=== PATIENT | female | born 1985 | race Two or more races ===

== ENCOUNTER 2019-01-04 08:39 | Emergency (ER) | payer MEDICAID ==
[~2019-01-04] VITALS: Ht 154.9 cm; Wt 62.2 kg
[2019-01-04 08:42] VITALS: BP 125/65
--- NOTE | 2019-01-04 08:51 | NUR ---
Patient ambulated to bed 4. RN evaluating patient at bedside.
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
--- NOTE | 2019-01-04 09:10 | NUR ---
Dr. Huynh evaluating patient at bedside.
--- NOTE | 2019-01-04 09:25 | NUR ---
PT BEING TAKEN TO XRAY
--- NOTE | 2019-01-04 09:38 | NUR ---
Patient returned from XRAY. RN re-evaluating patient at bedside.
[2019-01-04] MEDS ORDERED: HYDROcodone/APAP 5/325 MG 1 TAB TAB PO ONE (10:15)
[2019-01-04 10:39] VITALS: BP 129/70
--- NOTE | 2019-01-04 10:39 | NUR ---
Patient discharged with v/s stable. Written and verbal after care instructions given and explained. Patient alert, oriented and verbalized understanding of instructions. Ambulatory with steady gait. All questions addressed prior to discharge. ID band removed. Patient advised to follow up with PMD. Rx of IBUPROFEN AND NORCO given. Patient educated on indication of medication including possible reaction and side effects. PT DRIVING HOME. Opportunity to ask questions provided and answered.
== END 2019-01-04 10:39 | disposition home or self-care (01) ==
LOC: MED 08:39
DX: S13.4XXA Sprain of ligaments of cervical spine, initial encounter (principal); S80.02XA Contusion of left knee, initial encounter; S40.012A Contusion of left shoulder, initial encounter; V43.52XA Car driver injured in collision with other type car in traffic accident, initial encounter; Y93.89 Activity, other specified; Y92.411 Interstate highway as the place of occurrence of the external cause; Y99.8 Other external cause status
CPT/HCPCS: 71045; 73562; 99283

== ENCOUNTER 2024-02-19 12:46 | Emergency (ER) | payer MEDICAID, OTHER ==
[~2024-02-19] VITALS: Ht 160 cm; Wt 66.2 kg
[2024-02-19 13:03] VITALS: BP 137/70; PULSE 70; RESP 20; TEMP 97.6; O2SAT 100
[2024-02-19] MEDS: ONDANSETRON 4 MG ODT PO ONE (15:16)
[2024-02-19] MEDS: KETOROLAC 60 MG/2 ML VIAL IM ONE (15:21)
[2024-02-19] MEDS ORDERED: ONDA8TAB87 PO (15:37)
[2024-02-19] MEDS ORDERED: IBUP-2213 PO (15:37)
[2024-02-19 16:18] VITALS: BP 119/63; PULSE 65; RESP 20; TEMP 97.6; O2SAT 100
== END 2024-02-19 16:14 | disposition home or self-care (01) ==
LOC: MED 12:46
DX: R51.9 Headache, unspecified (principal); R11.0 Nausea; R10.13 Epigastric pain
CPT/HCPCS: 81002; 81025; 96372; 99283; J1885; Q0162